=== PATIENT | female | born 1960 | race Caucasian/White ===

== ENCOUNTER 2023-10-27 10:26 | Day surgery (SDC) | payer MEDICAID ==
[~2023-10-27] VITALS: Ht 162.6 cm; Wt 62.2 kg
[2023-10-27] MEDS ORDERED: MEPERIDINE 100 MG INJ. 100 MG/ML VIAL ONE (10:54)
[2023-10-27] MEDS ORDERED: MIDAZOLAM HCL 5 MG/5 ML VIAL ONE (10:54)
[2023-10-27] MEDS ORDERED: SIMETHICONE 40 MG/0.6 ML ML ONE (10:54)
[2023-10-27 13:16] VITALS: BP_SYST 135; PULSE 50; RESP 16; TEMP 98.3; O2SAT 100
== END 2023-10-27 12:35 | disposition home or self-care (01) ==
LOC: SMU 10:26 → SDS 10:26
PROVIDERS: ATTEND Student in an Organized Health Care Education/Training Program
DX: R13.10 Dysphagia, unspecified (principal); R10.9 Unspecified abdominal pain; K29.50 Unspecified chronic gastritis without bleeding; K20.90 Esophagitis, unspecified without bleeding; Z79.899 Other long term (current) drug therapy
CPT/HCPCS: 43239; 99152; 88305; 88312; 88313; G0378; J2250; J2175